=== PATIENT | male | born 2000 | race Caucasian/White ===

== ENCOUNTER 2018-08-31 23:58 | Emergency (ER) | payer SELFPAY ==
[~2018-08-31] VITALS: Ht 175.3 cm; Wt 86.2 kg
[2018-09-01 00:11] VITALS: BP 127/74
--- NOTE | 2018-09-01 00:22 | NUR ---
BIBSELF WITH MOTHER. AAOX4. NAD NOTED, BREATHING EVEN AND UNLABORED. AMBULATORY. C/O DIZZYNESS STARTED 1.5 HOURS AGO. PT FELT DIZZY AFTER STANDING UP AND FELT THE ROOM SPINNING. PT ALSO REPORT FEELING NUMBNESS ON R HAND AND RIGHT FOOT. PT DENIES CP. PT REPORTS SLIGHT NAUSEA D/T SPINNING ROOM SENSATON BUT NO VOMITING AND DIARRHEA. PT DENIES TRAUMA TO THE HEAD. PT REPORT HAVING COLDS RECENTLY AND STARTING TO GET OVER IT. TO ER BED 10. MD AT BEDSIDE FOR EVAL. AWWITING ORDERS
[2018-09-01] MEDS ORDERED: MECLIZINE HCL 12.5 MG TABLET ONE (00:36)
--- NOTE | 2018-09-01 00:41 | NUR ---
Patient discharged to home in stable condition. Written and verbal after care instructions given. Patient verbalizes understanding of instruction. Pt ambulatory with a steady gait
[2018-09-01] MEDS ORDERED: MECLIZINE HCL 12.5 MG TABLET PO ONE (01:00)
== END 2018-09-01 00:42 | disposition home or self-care (01) ==
LOC: ER 09-01 00:05
DX: H81.11 Benign paroxysmal vertigo, right ear (principal)
CPT/HCPCS: 99283; J8597